=== PATIENT | male | born 1955 | race Caucasian/White ===

== ENCOUNTER 2017-04-20 13:16 | Emergency (ER) | payer OTHER ==
[~2017-04-20] VITALS: Ht 177.8 cm; Wt 79.3 kg
[2017-04-20 13:16] VITALS: BP 118/70
[2017-04-20] MEDS ORDERED: GABA-282 (13:36)
[2017-04-20] MEDS ORDERED: ZOLP10TA2 (13:36)
[2017-04-20] MEDS ORDERED: HYDR-3719 (13:36)
[2017-04-20] MEDS ORDERED: FINA5TAB2 PO (13:37)
--- NOTE | 2017-04-20 14:31 | REP ---
Clinical: Abdominal pain and distension. Technique: Single supine view of the abdomen and pelvis. Findings: Bowel gas pattern is nonspecific. No organomegaly. The patient is status post lumbar spinal surgery. Calcifications in the pelvis consistent with phleboliths. Impression: Nonspecific bowel gas pattern. Signed by Pedrito Steiner MD 04/20/2017 02:23 P
[2017-04-20] MEDS ORDERED: SOMA350T PO (14:40)
== END 2017-04-20 15:04 | disposition home or self-care (01) ==
LOC: M ED 13:16
DX: G89.29 Other chronic pain (principal); Z87.891 Personal history of nicotine dependence; Z79.82 Long term (current) use of aspirin

== ENCOUNTER 2017-04-24 11:46 | Emergency (ER) | payer OTHER ==
[~2017-04-24] VITALS: Ht 177.8 cm; Wt 78.3 kg
[~2017-04-24 11:46] MED LIST: FINA5TAB2 PO; GABA-282; HYDR-3719; SOMA350T PO; ZOLP10TA2
[2017-04-24] MEDS ORDERED: LYRI300C PO (12:01)
[2017-04-24] MEDS ORDERED: ASPI81TA85 PO (12:01)
[2017-04-24] MEDS ORDERED: SODIUM CHLORIDE 0.9% 1000 ML IV ONE (13:00)
[2017-04-24] MEDS ORDERED: ONDANSETRON 4MG/2ML VIAL (J2405) IV ONE (13:00)
[2017-04-24] MEDS ORDERED: HYDROmorphone HCL 1 MG/ML SYRINGE (J1170) IV PRN ×3 (13:00→15:00)
[2017-04-24 13:20] LABS: ALBUMIN 3.2 GM/DL (3.2-5.2); ALBUMIN/GLOBULIN RATIO 0.73 (1.00-1.93); ALKALINE PHOSPHATASE 110 U/L (45-117); ALT/SGPT 53 U/L (12-78); AMYLASE 56 U/L (25-115); ANION GAP 4 MEQ/L (8-16); AST/SGOT 38 U/L (15-37); BILIRUBIN,DIRECT 0.1 MG/DL (0.0-0.2); BILIRUBIN,TOTAL 0.3 MG/DL (0.2-1.0); BLOOD UREA NITROGEN 24 MG/DL (7-18); CALCIUM LEVEL 9.1 MG/DL (8.8-10.2); CARBON DIOXIDE LEVEL 31 MEQ/L (21-32); CHLORIDE LEVEL 102 MEQ/L (98-107); CREATININE FOR GFR 1.06 MG/DL (0.70-1.30); GLOMERULAR FILTRATION RATE > 60.0 (>49); GLUCOSE, FASTING 102 MG/DL (80-110); POTASSIUM SERUM 4.6 MEQ/L (3.5-5.1); SODIUM LEVEL 137 MEQ/L (136-145); TOTAL PROTEIN 7.6 GM/DL (6.4-8.2)
--- NOTE | 2017-04-24 13:24 | REP ---
Clinical: Periumbilical abdominal pain. Findings: The lung bases demonstrate chronic fibroatelectatic changes and evidence for old healed right rib fractures. No cardiomegaly. Liver demonstrates multiple hypodensities likely representing cysts measuring up to 2 cm. Spleen, pancreas, gallbladder, bilateral adrenal glands and kidneys are normal for noncontrast evaluation. 1 mm nonobstructing bilateral renal calculi are suggested. The enteric system is without obstruction or acute inflammatory process. Scattered colonic diverticula noted without acute diverticulitis. Pelvis demonstrates moderately distended bladder and heterogeneous enlarged prostate gland measuring 5 cm maximal transverse diameter. No ascites. No free air. No adenopathy. Dominant noted without aneurysm. Musculoskeletal structures demonstrate degenerative changes and evidence for prior posterior fusion. Impression: 1. Scattered hypodensities within the liver measuring up to 2 cm likely representing cysts may be followed by ultrasound if necessary. 2. Bilateral 1 mm nonobstructing renal calculi. 3. Enlarged prostate gland. 4. No acute abdominopelvic pathology appreciated. Signed by Pedrito Steiner MD 04/24/2017 01:16 P
[2017-04-24] MEDS ORDERED: VALA1TAB2 PO (13:29)
[2017-04-24] MEDS ORDERED: PRED20TA PO (13:30)
[2017-04-24 13:31] LABS: BASO % 0.3 % (0.0-1.0); EOS % 0.7 % (0.0-3.0); LARGE UNSTAINED CELL # 0.1 K/mm3 (0.0-0.4); LARGE UNSTAINED CELL % 1.7 % (0.0-4.0); LYMPH # 0.8 K/mm3 (1.5-4.5); LYMPH % 10.7 % (24.0-44.0); MEAN CORPUSCULAR HEMOGLOBIN 33.6 pg (27.0-33.0); MEAN CORPUSCULAR VOLUME 98.8 fl (80.0-96.0); MONO # 0.2 K/mm3 (0.0-0.8); MONO % 2.8 % (0.0-5.0); NEUTROPHILS # 6.1 K/mm3 (1.8-7.7); NEUTROPHILS % 83.7 % (36.0-66.0); PLATELET COUNT, AUTOMATED 379 k/mm3 (150-450); WHITE BLOOD COUNT 7.2 K/mm3 (4.0-10.0)
[2017-04-24] MEDS ORDERED: ARTIDRO3 OP (13:34)
[2017-04-24] MEDS ORDERED: BACIOIN23 OP (13:37)
--- NOTE | 2017-04-24 13:52 | ECGEPIP ---
Stationary ECG Study [facility] - ED Test Date: 2017-04-24 Pat Name: JOSE ALFREDO TAM Department: Room: - Gender: M Manager Requirements: tony : 1955 Requested By: Lety Lechuga Order Number: [id number] Reading MD: Lety Lechuga Measurements Intervals [place] Rate: 91 P: 69 MT: 162 QRS: 61 QRSD: 101 T: 55 QT: 350 QTc: 431 Interpretive Statements SINUS RHYTHM WITH OCCASIONAL SUPRAVENTRICULAR PREMATURE COMPLEXES NO PRIOR FOR COMPARISON Electronically Signed On 04-24-2017 13:51:31 EDT by Lety Lechuga
--- NOTE | 2017-04-24 16:49 | REP ---
MRI study of the right hip with IV contrast: History: Abnormal MRI scan [facility] 04/18/2017. Postcontrast enhanced MRI recommended. Gadolinium enhancement dose: 15 mL of intravenous ProHance is administered. Technique: Axial, coronal and sagittal T1-weighted fat sat post gadolinium enhanced images are acquired of the right hip. Findings: The cystic lesion seen posterior aspect of the right hip shows only peripheral capsular pattern of contrast enhancement. It is T1 signal intensity is low. It is compatible with a ganglion cyst. No other significant finding. Impression: Small ganglion cyst posterior aspect right hip. This is most likely associated with osteoarthritis. By a T2-weighted imaging from 04/18/2017. This lesion measured 2.5 cm in greatest diameter. Signed by Alex Malin MD 04/24/2017 05:17 P
--- NOTE | 2017-04-24 16:55 | REP ---
MR LUMBAR SPINE WITHOUT AND WITH CONTRAST: HISTORY: Low back pain. CONTRAST: ProHance 15 mL. COMPARISON: 04/18/2017. The patient is status-post L3-S1 anterior and L2 to L4 posterior spinal fusion. Bone graft material is present anteriorly and metal rods and pedicle screws posteriorly. Decreased signal intensity on T2-weighted images is present in the L1-2 and L2-3 intervertebral discs. The discs are decreased in height. These findings are consistent with disc degeneration. There is no disc bulge or herniation at the L1-2 level. The L1 nerves exit the neural foramina without compression. A diffuse disc bulge is present at the L2-3 level. There is minimal compression of the thecal sac. There is hypertrophy of the posterior articulating facets. The L2 nerves exit the neural foramina without compression. A diffuse disc bulge is present at the L3-4 level. There is minimal compression of the thecal sac. There is hypertrophy of the posterior articulating facets. There is compression of the right L3 nerve in the neural foramen. The left L3 nerve exits the neural foramen without compression. A diffuse disc bulge is present at the L4-5 level. This abuts the thecal sac. There is hypertrophy of the posterior articulating facets. The L4 nerves exit the neural foramina without compression. A diffuse disc bulge is present at the L5-S1 level. This abuts the thecal sac. There is hypertrophy of the posterior articulating facets. The L5 nerves exit the neural foramina without compression. The conus medullaris is normal in appearance terminating at the level of the L1-2 intervertebral discs. Increased signal intensity on T2-weighted images is present in the end plates of the L3-S1 vertebral bodies. This represents degenerative change. There is no subluxation. There is moderate distension of the urinary bladder. This is incompletely seen. IMPRESSION: 1. The patient is status-post L3-S1 anterior and L2-L4 posterior spinal fusion. There is anatomic alignment of the cervical spine. 2. Diffuse disc bulges at the L2-3 and L3-4 levels with minimal thecal sac compression. There is compression of the right L3 nerve in the neural foramen . 3. Diffuse disc bulge at the L4-5 and L5-S1 level. The disc bulges abut the thecal sac. There is no significant change compared to the previous study. Signed by Pablo Sutton MD 04/24/2017 05:01 P
[2017-04-24] MEDS ORDERED: COLA100C5 PO (17:02)
[2017-04-24 17:16] VITALS: BP 131/67
--- NOTE | 2017-04-25 08:36 | ED PDOC ---
Post-Departure Follow-Up [facility] faxed formal report of ct abd/p for fu Jaqueline Lamar MD Apr 25, 2017 08:36
--- NOTE | 2017-04-25 08:38 | ED PDOC ---
Post-Departure Follow-Up mri ls spine also faxed to [facility] Jaqueline Lamar MD Apr 25, 2017 08:38
--- NOTE | 2017-04-25 08:38 | ED PDOC ---
Post-Departure Follow-Up [facility] also faxed formal report of mri hip for fu Jaqueline Lamar MD Apr 25, 2017 08:38
[2017-04-26 15:14] LABS: Lyme Disease IgG Ab 18 kDa Ban Present (.); Lyme Disease IgG Ab 23 kDa Ban Absent (.); Lyme Disease IgG Ab 28 kDa Ban Absent (.); Lyme Disease IgG Ab 30 kDa Ban Absent (.); Lyme Disease IgG Ab 39 kDa Ban Present (.); Lyme Disease IgG Ab 41 kDa Ban Present (.); Lyme Disease IgG Ab 45 kDa Ban Present (.); Lyme Disease IgG Ab 58 kDa Ban Absent (.); Lyme Disease IgG Ab 66 kDa Ban Present (.); Lyme Disease IgG Ab 93 kDa Ban Absent (.); Lyme Disease IgG West Blot Int Positive (.); Lyme Disease IgG/IgM Antibodie 1.85 ISR (0.00-0.90); Lyme Disease IgM Ab 23 kDa Ban Present (.); Lyme Disease IgM Ab 39 kDa Ban Present (.); Lyme Disease IgM Ab 41 kDa Ban Present (.); Lyme Disease IgM Ab Quantitati 6.99 index (0.00-0.79); Lyme Disease IgM West Blot Int Positive (.)
== END 2017-04-24 17:48 | disposition home or self-care (01) ==
LOC: M ED 11:46
DX: G51.0 Bell's palsy (principal); M54.30 Sciatica, unspecified side; G62.9 Polyneuropathy, unspecified; Z85.828 Personal history of other malignant neoplasm of skin; M51.26 Other intervertebral disc displacement, lumbar region; M51.27 Other intervertebral disc displacement, lumbosacral region; Z98.1 Arthrodesis status; M67.48 Ganglion, other site; N40.0 Benign prostatic hyperplasia without lower urinary tract symptoms; N20.0 Calculus of kidney; K76.9 Liver disease, unspecified; Z79.82 Long term (current) use of aspirin; Z79.899 Other long term (current) drug therapy
CPT/HCPCS: 72158; 73722; 74176; 80048; 80076; 82150; 82550; 82553; 83690; 85025; 85610; 86617; 93005; 93041; 96374; 96375; 96376; 99284; A9576; J1170; J2405

== ENCOUNTER → 2017-05-08 | Outpatient (CLI) | payer OTHER ==
[~2017-05-08] MED LIST changes: +ARTIDRO3 OP; +ASPI81TA85 PO; +BACIOIN23 OP; +COLA100C5 PO; +LYRI300C PO; +PRED20TA PO; +VALA1TAB2 PO
[2017-05-08 13:34] LABS: INR 0.97
[2017-05-08 17:01] LABS: ALBUMIN 3.6 GM/DL (3.2-5.2); ALBUMIN/GLOBULIN RATIO 1.09 (1.00-1.93); ALKALINE PHOSPHATASE 77 U/L (45-117); ALT/SGPT 29 U/L (12-78); AST/SGOT 23 U/L (15-37); BILIRUBIN,DIRECT 0.1 MG/DL (0.0-0.2); BILIRUBIN,TOTAL 0.5 MG/DL (0.2-1.0); TOTAL PROTEIN 6.9 GM/DL (6.4-8.2)
[2017-05-09 09:15] LABS: HEPATITIS B SURFACE ANTIBODY NEGATIVE (POSITIVE)
== END ==
LOC: M LAB 12:34
PROVIDERS: ATTEND Internal Medicine Gastroenterology
DX: R19.7 Diarrhea, unspecified (principal)

== ENCOUNTER → 2017-05-13 | Outpatient (CLI) | payer OTHER ==
--- NOTE | 2017-05-14 05:30 | REP ---
Clinical: Diarrhea and abdominal pain. Technique: Quintana scale ultrasound using curved array transducer. Findings: The liver and pancreas are normal in contour, size, and echogenicity without significant focal hepatic or pancreatic lesions identified. Few small hepatic cysts are identified measuring up to 2.4 cm in the anterior segment right lobe and 1.2 cm in the posterior segment right lobe. The gallbladder is normal without gallstones, wall thickening or pericholecystic fluid. No biliary ductal dilatation is appreciated, and the common bile duct measures 5.7 mm diameter. The right kidney is normal in reniform shape without hydronephrosis and measures 9.8 x 6.2 x 4.7 cm. No ascites. Visualized portions of the abdominal aorta normal. Impression: Essentially normal right upper quadrant and gallbladder abdominal ultrasound. Signed by Pedrito Steiner MD 05/14/2017 05:22 A
== END ==
LOC: M RAD 07:47
PROVIDERS: ATTEND Internal Medicine Gastroenterology
DX: R19.7 Diarrhea, unspecified (principal)

== ENCOUNTER → 2018-07-30 | Outpatient (REF) | payer OTHER ==
[2018-07-30 16:14] LABS: BASO % 0.7 % (0.0-1.0); EOS # 0.1 10^3/uL (0.0-0.50); EOS % 2.4 % (0.0-3.0); HEMATOCRIT 42.2 % (42.0-52.0); IMMATURE GRANULOCYTE % 0.5 % (0-3.0); LYMPH # 1.1 10^3/uL (1.5-4.5); LYMPH % 26.2 % (24.0-44.0); MEAN CORPUSCULAR HEMOGLOBIN 32.6 pg (27.0-33.0); MEAN CORPUSCULAR HGB CONC 33.2 g/dl (32.0-36.5); MEAN CORPUSCULAR VOLUME 98.4 fl (80.0-96.0); MONO # 0.3 10^3/uL (0.0-0.8); MONO % 7.5 % (0.0-5.0); NEUTROPHILS # 2.6 10^3/uL (1.8-7.7); NEUTROPHILS % 62.7 % (36.0-66.0); PLATELET COUNT, AUTOMATED 202 10^3/uL (150-450); RED BLOOD COUNT 4.29 10^6/uL (4.30-6.10); RED CELL DISTRIBUTION WIDTH 14.4 % (11.5-14.5); WHITE BLOOD COUNT 4.1 10^3/uL (4.0-10.0)
[2018-07-30 16:40] LABS: ALBUMIN 4.1 GM/DL (3.2-5.2); ALBUMIN/GLOBULIN RATIO 1.41 (1.00-1.93); ALKALINE PHOSPHATASE 68 U/L (45-117); ALT/SGPT 14 U/L (12-78); ANION GAP 10 MEQ/L (8-16); AST/SGOT 18 U/L (7-37); BILIRUBIN,TOTAL 0.4 MG/DL (0.2-1.0); BLOOD UREA NITROGEN 19 MG/DL (7-18); C REACTIVE PROTEIN QUANTITATIV < 0.30 MG/DL (0.00-0.30); CALCIUM LEVEL 9.1 MG/DL (8.8-10.2); CARBON DIOXIDE LEVEL 28 MEQ/L (21-32); CHLORIDE LEVEL 102 MEQ/L (98-107); CREATININE FOR GFR 1.03 MG/DL (0.70-1.30); GLOMERULAR FILTRATION RATE > 60.0 (>49); GLUCOSE, FASTING 127 MG/DL (70-100); IMMUNOGLOBULIN G 652 MG/DL (681-1648); IMMUNOGLOBULIN M 111 MG/DL (40-230); POTASSIUM SERUM 4.5 MEQ/L (3.5-5.1); SODIUM LEVEL 140 MEQ/L (136-145)
[2018-07-30 16:51] LABS: ERYTHROCYTE SEDIMENTATION RATE 19 mm/hr (0-20)
[2018-08-04 12:38] LABS: ALBUMIN % 61.5 % (55.8-66.1)
[2018-08-04 12:39] LABS: ALBUMIN 4.31 GM/DL (3.29-5.55); ALPHA-1-GLOBULIN % 4.5 % (2.9-4.9); ALPHA-1-GLOBULINS 0.32 GM/DL (0.17-0.41); ALPHA-2-GLOBULINS 0.78 GM/DL (0.42-0.99); ALPHA-2-GLOBULINS % 11.2 % (7.1-11.8); BETA-1-GLOBULINS 0.53 GM/DL (0.28-0.60); BETA-1-GLOBULINS % 7.6 % (4.7-7.2); BETA-2-GLOBULINS 0.41 GM/DL (0.19-0.55); BETA-2-GLOBULINS % 5.9 % (3.2-6.5); GAMMA GLOBULIN % 9.3 % (11.1-18.8); GAMMA GLOBULINS 0.65 GM/DL (0.65-1.58)
[2018-08-07 00:08] LABS: IgG SERUM (part of Subclasses) 709 mg/dL (700-1600); IgG Subclass 1 259 mg/dL (248-810); IgG Subclass 2 252 mg/dL (130-555); IgG Subclass 3 28 mg/dL (15-102); IgG Subclass 4 48 mg/dL (2-96); Lyme Disease IgG/IgM Antibodie <0.91 ISR (0.00-0.90); Lyme Disease IgM Ab Quantitati <0.80 index (0.00-0.79)
== END ==
LOC: M SFHCPLAZ 12:52
DX: A69.20 Lyme disease, unspecified (principal); D47.2 Monoclonal gammopathy; J32.9 Chronic sinusitis, unspecified; M25.462 Effusion, left knee